=== PATIENT | female | born 1965 | race Caucasian/White ===

== ENCOUNTER 2017-01-05 15:54 | Inpatient (IN) | payer OTHER ==
[~2017-01-05] VITALS: Ht 162.6 cm; Wt 75.1 kg
[2017-01-05 16:58] LABS: microscopic required? NO
[2017-01-05 17:27] LABS: BASOPHIL % 0.3 % (0-2); PLATELET COUNT 242 x10^3mcL (130-400); RED CELL DISTRIBUTION WIDTH 13.4 % (11.5-14.5)
[2017-01-05 17:36] LABS: CALCIUM 9.7 mg/dL (8.5-10.1); CARBON DIOXIDE 34.3 mmol/L (21-32); CHLORIDE SERUM 104 mmol/L (98-107); GFR1 > 60 mL/min; GLUCOSE SERUM 176 mg/dL (74-106); POTASSIUM SERUM 4.3 mmol/L (3.5-5.1); SODIUM SERUM 141 mmol/L (136-145)
[2017-01-05 17:41] LABS: UA SPECIFIC GRAVITY <=1.005 (1.005-1.035); urine erythrocyte NEGATIVE (NEGATIVE)
[2017-01-05 17:42] LABS: ALBUMIN 3.7 g/dL (3.4-5.0); ALKALINE PHOSPHATASE 81 U/L (46-116); ALT/SGPT 34 U/L (14-59); AST/SGOT 18 U/L (15-37); BILIRUBIN TOTAL 0.3 mg/dL (0.20-1.00); CHOLESTEROL 146 mg/dL (<200); CHOLESTEROL/HDL RATIO 3.3; HDL CHOLESTEROL 44 mg/dL (40-60); LIPASE 302 IU/L (73-393); TOTAL PROTEIN, SERUM 7.5 g/dL (6.4-8.2); TRIGLYCERIDES 200 mg/dL (<150)
[2017-01-05 17:59] LABS: T3 TOTAL 1.04 ng/mL
[2017-01-05 18:01] LABS: FREE T4 1.06 ng/dL (0.76-1.46); FREE THYROXINE INDEX 3.5 ug/dL (1.4-4.5); T4(THYROXINE) 9.4 ug/dL (4.7-13.3)
[2017-01-05] MEDS ORDERED: ATENOLOL50 MG PO (20:03)
[2017-01-05] MEDS ORDERED: LANTUS SOLOS100 U/M1 SQ (20:04)
[2017-01-05] MEDS ORDERED: BENAZEPRIL HYDR1 POW PO (20:04)
[2017-01-05] MEDS ORDERED: EPZICOM1 TAB (20:04)
[2017-01-05 21:47] VITALS: BP 118/72
[2017-01-05 21:48] VITALS: BP 118/72
[2017-01-05] MEDS ORDERED: GABAPENTIN100 M2 PO (21:52)
[2017-01-05] MEDS ORDERED: OMEPRAZOLE20 M4 PO (21:53)
[2017-01-06 04:40] LABS: AMPHETAMINE QUAL UR NONE DETECTED (NEG <=1000)
[2017-01-06 05:37] VITALS: BP 112/61
[2017-01-06 07:36] LABS: BASOPHIL % 0.5 % (0-2); PLATELET COUNT 215 x10^3mcL (130-400); RED CELL DISTRIBUTION WIDTH 13.1 % (11.5-14.5)
[2017-01-06 07:51] LABS: CALCIUM 8.4 mg/dL (8.5-10.1); CARBON DIOXIDE 27.8 mmol/L (21-32); CREATININE SERUM 1.5 mg/dL (0.6-1.0); MAGNESIUM 1.7 mg/dL (1.8-2.4); PHOSPHOROUS 3.7 mg/dL (2.5-4.9); POTASSIUM SERUM 4.6 mmol/L (3.5-5.1)
[2017-01-06] MEDS ORDERED: BENAZEPRIL HYDR40 M1 PO (09:04)
[2017-01-06 09:33] VITALS: BP 116/56
[2017-01-06 09:46] VITALS: BP 116/56
== END 2017-01-06 12:50 | disposition home or self-care (01) | DRG 531 ==
LOC: ED 15:54 → MU 19:38 → DU 19:38 → MU 22:42
PROVIDERS: Specialist; ADMIT Family Medicine
DX: N70.11 Chronic salpingitis (principal); N17.0 Acute kidney failure with tubular necrosis; D68.69 Other thrombophilia; E11.42 Type 2 diabetes mellitus with diabetic polyneuropathy; E83.42 Hypomagnesemia; E11.39 Type 2 diabetes mellitus with other diabetic ophthalmic complication; I10 Essential (primary) hypertension; H54.8 Legal blindness, as defined in USA; K21.9 Gastro-esophageal reflux disease without esophagitis; Z79.4 Long term (current) use of insulin; Z68.28 Body mass index [BMI] 28.0-28.9, adult; H40.9 Unspecified glaucoma; Z90.710 Acquired absence of both cervix and uterus; Z90.49 Acquired absence of other specified parts of digestive tract
CPT/HCPCS: 82962; 83880; 84439; J0694; J1815; J1885; J2405; J3010; J7030

== ENCOUNTER 2019-10-12 10:54 | Emergency (ER) | payer OTHER ==
[~2019-10-12] VITALS: Ht 165.1 cm; Wt 78.5 kg
[~2019-10-12 10:54] MED LIST: ATENOLOL50 MG PO; BENAZEPRIL HYDR1 POW PO; BENAZEPRIL HYDR40 M1 PO; EPZICOM1 TAB; GABAPENTIN100 M2 PO; LANTUS SOLOS100 U/M1 SQ; OMEPRAZOLE20 M4 PO
[2019-10-12 11:26] VITALS: Ht 165.1 cm; Wt 78.5 kg
[2019-10-12 13:28] LABS: BASOPHIL % 0.4 % (0-2); PLATELET COUNT 272 x10^3mcL (130-400); RED CELL DISTRIBUTION WIDTH 13.5 % (11.5-14.5)
[2019-10-12 13:35] LABS: CALCIUM 9.4 mg/dL (8.5-10.1); CARBON DIOXIDE 33.4 mmol/L (21-32); CHLORIDE SERUM 101 mmol/L (98-107); CREATININE SERUM 0.8 mg/dL (0.6-1.0); GFR1 > 60 mL/min; GLUCOSE SERUM 69 mg/dL (74-106); POTASSIUM SERUM 4.4 mmol/L (3.5-5.1); SODIUM SERUM 140 mmol/L (136-145)
[2019-10-12 13:40] LABS: ALBUMIN 3.8 g/dL (3.4-5.0); ALKALINE PHOSPHATASE 94 U/L (46-116); ALT/SGPT 76 U/L (14-59); AMYLASE 54 U/L (25-115); AST/SGOT 38 U/L (15-37); BILIRUBIN TOTAL 0.6 mg/dL (0.20-1.00); LIPASE 213 IU/L (73-393); TOTAL PROTEIN, SERUM 8.1 g/dL (6.4-8.2)
[2019-10-12 14:30] VITALS: BP 139/71
== END 2019-10-12 14:30 | disposition home or self-care (01) ==
LOC: ED 10:54
PROVIDERS: Emergency Medicine
DX: R10.13 Epigastric pain (principal); R11.2 Nausea with vomiting, unspecified; I10 Essential (primary) hypertension; E11.9 Type 2 diabetes mellitus without complications; Z90.710 Acquired absence of both cervix and uterus; Z91.018 Allergy to other foods
CPT/HCPCS: 36415; J1885; Q0162